=== PATIENT | female | born 1955 | race African-American/Black ===

== ENCOUNTER 2018-10-16 13:16 | Emergency (ER) | payer MEDICAID ==
[~2018-10-16] VITALS: Ht 172.7 cm; Wt 59.0 kg
[~2018-10-16 13:16] MED LIST: BENAZEPRIL HCL40 MG ORAL; CARVEDILOL6.25 MG ORAL; FUROSEMIDE40 MG/5 ML ORAL; POTASSIUM CHLO20 ME2 ORAL; THEREMS1 EACH PO
--- NOTE | 2018-10-16 13:30 | NUR ---
ED Nurse Note: 63 year old female, brought in by [facility] [id number] c/o dizziness x 1 day she was on a bus, got off, got dizzy, called [facility], picked up from [facility]. a/o x4, ambulatory patient. she lives at home with her aunt per patient. past medical history includes hypertension, takes Clonidine + Lisinopril
[2018-10-16 13:41] VITALS: BP 216/118
--- NOTE | 2018-10-16 14:12 | Emergency Room Report ---
History of Present Illness General Chief Complaint: Hypertension Source: Patient Present Illness HPI Patient presents with nausea and dizziness. She ran out of her blood pressure medicine 3 weeks ago. Her blood pressure has been high. She denies any chest pain or pain in her body.. She denies any headache at this time. She states she supposed be taking clonidine. She states she is nauseated and has vomited yesterday. The patient has a history of congestive heart failure. She had some surgical procedure of with a sternotomy. In addition to that she's had an implanted defibrillator placed. No fevers, chills, chest pain, palpitations, diarrhea, dysuria, abdominal pain, shortness of breath, depression, visual changes, headache. Allergies: Coded Allergies: No Known Allergies (Unverified , 09/28/14) Patient History Past Medical History: see triage record Past Surgical History: pacemaker Social History: Reports: smoking Social History Narrative At home Now: No Reviewed Nursing Documentation: PMH: Agreed; PSxH: Agreed Nursing Documentation-PMH Past Medical History: No History, Except For Hx Hypertension: Yes - Pacemaker Hx Asthma: Yes - RESP FAILURE Review of Systems All Other Systems: negative except mentioned in HPI Physical Exam Vital Signs Date Time Temp Pulse Resp B/P (MAP) Pulse Ox O2 Delivery O2 Flow Rate FiO2 10/16/18 13:10 98.4 80 20 216/118 98 Room Air Sp02 EP Interpretation: reviewed, normal General Appearance: well appearing, no apparent distress, GCS 15 Head: normocephalic Eyes: bilateral eye normal inspection, bilateral eye PERRL, bilateral eye EOMI ENT: moist mucus membranes Neck: supple Respiratory: lungs clear, normal breath sounds Cardiovascular #1: regular rate, rhythm Cardiovascular #2: 2+ radial (R) Gastrointestinal: normal inspection, normal bowel sounds, non tender, no mass, non-distended Genitourinary: no CVA tenderness Musculoskeletal: back normal, gait/station normal, normal range of motion Neurologic: alert, oriented x3, 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 Differential includes acute myocardial infarction , hypertensive urgency, congestive heart failure amongst others. Patient be evaluated with EKG, chest x-ray and labs. She'll be treated with Catapres and repeated blood pressure determinations. She'll be placed on a cardiac rehabilitation program director. EKG sinus rhythm with premature atrial complexes left axis deviation and right bundle-branch block left ventricular hypertrophy with repolarization abnormality. Labs with normal CBC. CMP with renal insufficiency. Initial troponin negative. Refused to give urine. Due to the fact that the patient refused to give urine there is a suspicion of possible drug use. The patient refused to discuss this. Blood pressures improved. The patient's tolerating oral intake including solid food. Laboratory results were discussed with the patient. She was advised that she needs to follow-up. No medical emergency at this time. Patient is stable for outpatient observation and treatment. Laboratory Tests Test 10/16/18 14:20 White Blood Count 3.8 K/UL (4.8-10.8) L Red Blood Count 3.73 M/UL (4.20-5.40) L Hemoglobin 11.7 G/DL (12.0-16.0) L Hematocrit 35.5 % (37.0-47.0) L Mean Corpuscular Volume 95 FL (80-99) Mean Corpuscular Hemoglobin 31.3 PG (27.0-31.0) H Mean Corpuscular Hemoglobin Concent 32.9 G/DL (32.0-36.0) Red Cell Distribution Width 14.2 % (11.6-14.8) Platelet Count 122 K/UL (150-450) L Mean Platelet Volume 6.4 FL (6.5-10.1) L Neutrophils (%) (Auto) 79.6 % (45.0-75.0) H Lymphocytes (%) (Auto) 14.9 % (20.0-45.0) L Monocytes (%) (Auto) 4.9 % (1.0-10.0) Eosinophils (%) (Auto) 0.0 % (0.0-3.0) Basophils (%) (Auto) 0.5 % (0.0-2.0) Sodium Level 135 MMOL/L (136-145) L Potassium Level 3.4 MMOL/L (3.5-5.1) L Chloride Level 95 MMOL/L (98-107) L Carbon Dioxide Level 28 MMOL/L (21-32) Anion Gap 12 mmol/L (5-15) Blood Urea Nitrogen 26 mg/dL (7-18) H Creatinine 1.4 MG/DL (0.55-1.30) H Estimate Glomerular Filtration Rate 46.2 mL/min (>60) Glucose Level 212 MG/DL (74-106) H Calcium Level 9.3 MG/DL (8.5-10.1) Total Bilirubin 1.7 MG/DL (0.2-1.0) H Direct Bilirubin 1.1 MG/DL (0.0-0.3) H Aspartate Amino Transferase (AST) 162 U/L (15-37) H Alanine Aminotransferase (ALT) 53 U/L (12-78) Alkaline Phosphatase 142 U/L (46-116) H Total Creatine Kinase 189 U/L (26-308) Creatine Kinase MB 2.6 NG/ML (0.0-3.6) Creatine Kinase MB Relative Index 1.3 Troponin I 0.018 ng/mL (0.000-0.056) Total Protein 8.5 G/DL (6.4-8.2) H Albumin 3.1 G/DL (3.4-5.0) L Globulin 5.4 g/dL Albumin/Globulin Ratio 0.6 (1.0-2.7) L EKG Diagnostic Results Rate: normal Rhythm: NSR ST Segments: no acute changes Rhythm Strip Diag. Results EP Interpretation: yes Rhythm: NSR, no PVC's, other - PACs Chest X-Ray Diagnostic Results Chest X-Ray Diagnostic Results : Chest X-Ray Ordered: Yes # of Views/Limited/Complete: 1 View Indication: Other EP Interpretation: Yes Interpretation: no consolidation, no effusion, no pneumothorax, other - pacer and cabg Impression: Other Electronically Signed by: Electronically signed by Roberth Lind MD Last Vital Signs Date Time Temp Pulse Resp B/P (MAP) Pulse Ox O2 Delivery O2 Flow Rate FiO2 10/16/18 16:51 98.4 18 180/95 98 Room Air 10/16/18 14:33 80 Status: improved Disposition: HOME, SELF-CARE Condition: Improved Scripts Clonidine Hcl* (CATAPRES*) 0.2 Mg Tablet 0.2 MG ORAL Q8HR, #60 TAB 1 Refill Prov: Roberth Lind MD 10/16/18 Famotidine (PEPCID AC) 20 Mg Tablet 20 MG PO DAILY, #20 TAB Prov: Roberth Lind MD 10/16/18 Ondansetron Odt* (ZOFRAN ODT*) 4 Mg Tab.rapdis 4 MG BC EVERY 8 HOURS, #10 TAB 0 Refills Prov: Roberth Lind MD 10/16/18 Referrals: [facility],REFERRING (PCP) Roberth Lind MD Oct 16, 2018 14:12
--- NOTE | 2018-10-16 14:33 | NUR ---
ED Nurse Note: unable to obtain urine at this time. paient is drinking 3 cups of water will try again
--- NOTE | 2018-10-16 14:47 | Diagnostic Imaging Report ---
Indication: Dyspnea Comparison: 09/28/2014 A single view chest radiograph was obtained. Findings: The lungs are clear. Aorta is enlarged. The heart is mildly enlarged. Mechanical aortic valve, sternotomy and left-sided pacemaker noted. IMPRESSION: No acute disease
[2018-10-16 14:55] LABS: ANION GAP 12 mmol/L (5-15); BLOOD UREA NITROGEN 26 mg/dL (7-18); CALCIUM 9.3 MG/DL (8.5-10.1); CARBON DIOXIDE 28 MMOL/L (21-32); CHLORIDE 95 MMOL/L (98-107); CREATININE 1.4 MG/DL (0.55-1.30); POTASSIUM 3.4 MMOL/L (3.5-5.1); SODIUM 135 MMOL/L (136-145)
[2018-10-16 15:05] LABS: BASOPHILS % (AUTO) 0.5 % (0.0-2.0); HEMATOCRIT 35.5 % (37.0-47.0); HEMOGLOBIN 11.7 G/DL (12.0-16.0); LYMPHOCYTES % (AUTO) 14.9 % (20.0-45.0); MEAN CORPUSCULAR VOLUME 95 FL (80-99); MONOCYTES % (AUTO) 4.9 % (1.0-10.0); NEUTROPHILS % (AUTO) 79.6 % (45.0-75.0); PLATELET COUNT 122 K/UL (150-450); RED BLOOD COUNT 3.73 M/UL (4.20-5.40); RED CELL DISTRIBUTION WIDTH 14.2 % (11.6-14.8); WHITE BLOOD COUNT 3.8 K/UL (4.8-10.8)
[2018-10-16 15:08] LABS: ALANINE AMINOTRANSFERASE 53 U/L (12-78); ALBUMIN 3.1 G/DL (3.4-5.0); ALBUMIN/GLOBULIN RATIO 0.6 (1.0-2.7); ALKALINE PHOSPHATASE 142 U/L (46-116); ASPARTATE AMINO TRANSFERASE 162 U/L (15-37); BILIRUBIN,TOTAL 1.7 MG/DL (0.2-1.0); CKMB 2.6 NG/ML (0.0-3.6); CREATINE KINASE 189 U/L (26-308)
[2018-10-16 15:10] LABS: BILIRUBIN,DIRECT 1.1 MG/DL (0.0-0.3)
--- NOTE | 2018-10-16 15:11 | NUR ---
ED Nurse Note: patient went to use the restroom, educated patient to use the wipe/cup for the urine, after she came back, patient stated that she forgot to use the cup for the urine will attempt later again
[2018-10-16] MEDS ORDERED: CATAPRES0.2 MG ORAL (16:27)
[2018-10-16] MEDS ORDERED: PEPCID AC20 M2 PO (16:27)
[2018-10-16] MEDS ORDERED: ONDANSETRON ODT4 MG BC (16:27)
[2018-10-16] MEDS ORDERED: Mylanta II UD 30ml ORAL ONE (16:30)
--- NOTE | 2018-10-16 16:50 | NUR ---
ED Nurse Note: unable to take urine from the patient, patient not giving urine at this time (states that she forgot to pee in a cup), provided daniel amador
[2018-10-16 16:51] VITALS: BP 180/95
--- NOTE | 2018-10-16 16:55 | NUR ---
ED Nurse Note: patient is being discharged, cleared by Dr.Eisner NINFA Discharge instructions/paper/prescription given to the patient, patient verbalized understanding, signed paper. a/o x4. All belongings taken with the patient. patient is ambulatory, steady gait. ID band removed. IV removed without complication called taxi for her.
== END 2018-10-16 16:58 | disposition home or self-care (01) ==
LOC: EDBD 13:16 → EMR 13:42
DX: I10 Essential (primary) hypertension (principal); N28.9 Disorder of kidney and ureter, unspecified; Z91.14 Patient's other noncompliance with medication regimen; R11.2 Nausea with vomiting, unspecified; J45.909 Unspecified asthma, uncomplicated; F17.200 Nicotine dependence, unspecified, uncomplicated; Z95.0 Presence of cardiac pacemaker
CPT/HCPCS: 71045; 80053; 82248; 82550; 82553; 84484; 85025; 99283